=== PATIENT | male | born 1945 | race Caucasian/White ===

== ENCOUNTER 2020-09-24 10:01 | Day surgery (SDC) | payer MEDICARE, OTHER, SELFPAY ==
--- NOTE | 2020-09-23 16:39 | PCM.HP.BLA ---
History and Physical Date of Admission: 09/24/20 HISTORY AND PHYSICAL ? Austyn Paris 1945 ? ? REFERRING PHYSICIAN: Esau Pereyra MD ? CHIEF COMPLAINT: Consult (Consult Port placemnet) ? 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 He is referred by his oncologist for placement of portacath for chemotherapy.. Patient has had no central lines placed in the past. He denies history of clavicular/rib/neck fractures. ? ? PAST MEDICAL HISTORY ? HTN (hypertension) ? ? 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 Sleep apnea ? ? Testicular cancer (HCC) 08/2020 ? PAST SURGICAL HISTORY ? CYSTOSCOPY ? ? ? With stent placement ? TOTAL KNEE REPLACEMENT Left 2017 ? ? Current Outpatient Medications ? OLANZapine (ZYPREXA) 5 mg tablet Take 1 tablet by mouth daily at bedtime. As needed for nausea ? rivaroxaban (XARELTO) 15 mg tablet Take 1 tablet by mouth daily with dinner. ? lisinopril (ZESTRIL, PRINIVIL) 10 mg tablet Take 10 mg by mouth once daily. ? ? ALLERGIES: Patient has no known allergies. ? PERSONAL HISTORY: Social History Tobacco Use ? Smoking status: Never Smoker ? Smokeless tobacco: Never Used Substance Use Topics ? Alcohol use: Yes ? ? Comment: 2 beers in the last 3 months ? Drug use: Never ? FAMILY HISTORY ? other (bladder cancer) Mother ? ? Anesthesia Problems No Family History ? ? ? REVIEW OF SYSTEMS: General - denies fevers, denies anorexia, denies weight loss Cardiovascular - denies chest pain, denies history of OR Pulmonary - denies shortness of breath, denies coughing up blood Gastrointestinal - denies abdominal pain, denies hematemesis, denies blood in stools Neurological - denies seizures, denies chronic numbness/weakness of extremities Genitourinary - denies burning with urination, notes darkened urine Hematological - will be starting xarelto after this, denies spontaneous/prolonged bleeding Skin - denies nonhealing skin wounds Musculoskeletal - denies history of bone fractures, had left knee replacement, no new muscle/bone pain Endocrine - denies diabetes, no thyroid problems Psychological ? denies hallucinations ? ? PHYSICAL EXAMINATION: General: The patient is 75 year old male, well nourished, well hydrated in no acute distress. The patient is oriented to time, place, and person. VITALS: Pulse 93, temperature 36.6 ?C (97.9 ?F), height 180.3 cm (5' 11), weight 98.5 kg (217 lb 3.2 oz), SpO2 95 %. Body mass index is 30.29 kg/m?. ? Head ? Normocephalic. EOM intact with sclera clear and no icterus noted. Mouth with mucus membranes moist. Neck - supple with no jugular venous distention noted. Trachea is midline. Lungs ? clear to auscultation. Normal breath sounds. No rales/rhonchi/wheezing noted. No labored breathing noted, such as retractions. No cough heard. Heart ? normal S1 and S2 auscultated. No rubs/clicks/murmurs noted. Regular rate. Abdomen ? soft and benign. Normal bowel sounds. No abdominal bruits noted. Difficult to determine if any masses or organomegaly due to body habitus. Extremities ? no calf tenderness noted. No pitting edema noted. Skin ? normal skin integrity. Neurological ? gait normal, no focal deficits noted. Psych ? calm and appropriate ? ? IMPRESSION: metastatic seminoma, need for portacath for chemotherapy ? PLAN: I have discussed the above with the patient. I have offered placement of portacath, patient prefers left sided. I have explained the procedure to the patient. I have counseled the patient as to the risks of the procedure, including but not limited to: infection, bleeding, injury to any blood vessels/nerves, injury to lungs (such as pneumothorax or hemothorax and need for chest tube), not having any access, nonfunctioning of port due to thrombosis, infection of port, thromboses of vasculature, migration of the port, complications of anesthesia, etc. ? the patient understands. The patient was offered a surgery/procedure. The provider and patient have discussed in detail the risk of exposure to and/or potential harm posed by the COVID-19 virus with having a surgery/procedure at this time versus the risk of delaying the surgery/procedure. It is not possible to know either the risk of delaying the surgery or procedure or chance of getting an infection with perfect accuracy, but a joint decision was made between the patient and the provider to proceed at this time with the scheduled surgery/procedure. The patient wishes to proceed. I have answered all questions to the patient?s satisfaction and the patient has no further questions. ? ? ? Pily Francois MD
[2020-09-24] VITALS (7 sets, daily range): BP systolic 114–127; BP diastolic 76–89; PULSE 72–77; RESP 16; TEMP 36.6–37.2; O2SAT 93–100; BMI 30.2
[2020-09-24] MEDS: Lactated Ringers 1,000 ML 75 ML IV (10:34)
[2020-09-24] MEDS: Lidocaine 1% /Epi 1:100 (20ml) 20 ML Vial (11:46)
--- NOTE | 2020-09-24 12:16 | OP.PCM_ITS ---
Report of Operation Date of Procedure: 09/24/20 Pre-Operative Diagnosis: testicular cancer, need for IV access for chemotherapy Post-Operative Diagnosis: same Surgery/Procedure Performed:: placement of permanent indwelling tunnelled catheter in left subclavian vein with subcutaneous port Description of Surgical Findings:: normal left subclavian anatomy to SVC Type of Anesthesia:: Local MAC Anesthesiologist: Lamberto Ray Specimen's removed: none Estimated Blood Loss (mL): < 5 ml Fluids Replaced: 800 ml RL Description of Procedure: After informed consent was given, the patient was brought to the Operating Room. Appropriate time out protocol was followed. The patient was then placed in the supine position. The patient was then given IV conscious sedation for anesthesia. The patient?s upper chest and neck were then prepped with a surgical skin preparation and sterile surgical drapes were placed. After proper landmarks were ascertained, the skin at the upper left chest area was then infiltrated with 1% xylocaine with epinephrine. A needle trocar was then inserted into the left subclavian vein and there was good aspiration of venous blood. A wire was then threaded into the needle trocar and this was visualized under fluoroscopy to ensure that the wire was in the left subclavian vein. Once this was done, then the needle trocar was removed. A small skin dino was made with an 11 blade knife at the wire entrance site. The dilator with the introducer sheath attached was then placed over the wire into the left subclavian vein via the Seldinger technique and this was visualized under fluoroscopy. The dilator and sheath were in proper position as visualized by fluoroscopy in real time. The wire and dilator were then removed. The catheter was then threaded into the introducer sheath and was positioned with its tip at the junction of the superior vena cava and the right atrium as visualized under fluoroscopy in real time. I personally reviewed all of the above fluoroscopic images and noted that the positions of the wire and catheter were correct so that the next step could be conducted. The catheter was flushed with a heparin saline mixture prior to placement. A subcutaneous pocket was then created caudad to the catheter insertion site. A transverse skin incision was made after the skin and subcutaneous tissues were infiltrated with local anesthetic. Blunt dissection was then used to create a space large enough for placement of the subcutaneous port. Hemostasis was carefully controlled with electrocautery. The port was sutured to the subcutaneous fascia using vicryl suture at three sites. The catheter was then tunneled into the subcutaneous pocket. The excess catheter was transected. The catheter was then attached to the subcutaneous port using floor covering contractor?s guidelines. The port was then placed in the subcutaneous pocket and the sutures were ligated. The subdermal incisional sites were reapproximated with interrupted vicryl suture. The skin was reapproximated with monocryl suture in a subcuticular fashion. Cavilon and steristrips were used for reinforcement of the skin closure and a sterile opsite dressing was applied. Sponge, needle, and instrument count were verified and correct at the time of skin closure. The patient was brought to the Recovery Room in stable condition - Complications none noted - Admit VTE Documentation VTE Present on Admission: Yes VTE Mechan Device Prophylaxis: SCD's
--- NOTE | 2020-09-24 12:27 | PCM.DC.POR ---
Discharge Diet: No Restrictions Discharge Activity: Return to Normal Activity, May not drive while taking narcotic pain medications. Call your doctor if your incision/area has: Continuous Slow Oozing, Foul Smelling Discharge Additional Instructions: Recommended pain control regimen - May take 600 mg ibuprofen (Motrin) and then in 3-4 hours, may take 650 mg acetaminophen (Tylenol), then in 3-4 hours may take 600 mg ibuprofen, then in 3-4 hours may take 650 mg acetaminophen and so on for 2-3 days May take narcotic pain medication for pain that is not controlled by above and at night for comfort through the night Leave dressings in place May get dressings wet in shower - do not scrub in the area and pat dry Do not soak - no tub baths/swimming You may have bleeding at the dressing sites. If small amounts and not seeping through the dressing, do not worry - leave dressing in place. If starting to seep through the dressing, you may remove the dressing and take a clean wash clothe and apply direct pressure to the area for at least an hour and then apply a new clean bandaid at the site. If it still has not stopped bleeding, please call the office during the day or the [facility] winding lathe operator at after hours and ask for Dr. Francois Allergies/Adverse Reactions: Allergies No Known Allergies Allergy (Verified 09/19/20 15:03) Medications to take at Discharge Cephalexin [Keflex] 500 mg PO Q8 09/19/20 Lisinopril/Hydrochlorothiazide [Lisinopril-Hctz 20-12.5 mg Tab] 1 ea PO DAILY 09/19/20 Primary Care Physician: Alistair Pelaez MD [Primary Care Provider] - Test Results: Test results from this visit will be discussed in further detail at your follow-up appointment, if applicable.
--- NOTE | 2020-09-24 12:30 | RAD_ITS ---
STUDY: X-RAY CHEST REASON FOR EXAM: Male, 75 years old. check line TECHNIQUE: Single AP portable view of the chest. COMPARISON: None. FINDINGS: Left subclavian chest port with tip the catheter overlying the distal superior vena cava. No pneumothorax. The lungs are clear and expanded. There is no demonstrated pleural abnormality. Normal size heart. Normal mediastinum and colt. Normal visualized pulmonary arteries. Normal visualized aortic arch and descending thoracic aorta. Normal visualized thoracic spine. Normal visualized ribs, clavicles, and shoulders. There is no demonstrated abnormality of the visualized soft tissue structures of the upper abdomen. RAD/CXR for Line Placement IMPRESSION: 1. Left subclavian chest port with tip the catheter overlying the distal superior vena cava and no pneumothorax. 2. No active disease. Electronically Signed: Willian Sahu MD at 13:02 EST Tel , Service support ,
== END 2020-09-24 13:29 | disposition home or self-care (01) ==
LOC: SDC 10:02 → AC 10:03
PROVIDERS: Referring Provider Surgery; Visit Provider Surgery
PROC: (CPT 36561; principal; 2020-09-24 11:15)
DX: Z45.2 Encounter for adjustment and management of vascular access device (principal); C62.11 Malignant neoplasm of descended right testis; I10 Essential (primary) hypertension; Z20.822 Contact with and (suspected) exposure to COVID-19; G47.30 Sleep apnea, unspecified; Z79.01 Long term (current) use of anticoagulants; Z79.899 Other long term (current) drug therapy; Z96.652 Presence of left artificial knee joint
CPT/HCPCS: 00532; 36561; 71045; 77001; 87426; C9803; J7050; J7120; C1788

== ENCOUNTER → 2020-11-08 | Outpatient (CLI) | payer MEDICARE, OTHER, SELFPAY ==
[2020-09-24 10:24] VITALS: BMI 30.2
[2020-11-08 14:22] LABS: International Normalized Ratio 1.2; Prothrombin Time (Protime)PT. 14.4 SECONDS (11.7-14.9)
== END | disposition home or self-care (01) ==
LOC: LABSPEC 14:06
PROVIDERS: Referring Provider Internal Medicine Hematology & Oncology; Visit Provider Internal Medicine Hematology & Oncology
DX: C62.11 Malignant neoplasm of descended right testis (principal); Z79.01 Long term (current) use of anticoagulants
CPT/HCPCS: 85610

== ENCOUNTER → 2020-12-12 | Outpatient (CLI) | payer MEDICARE, OTHER, SELFPAY ==
[2020-09-24 10:24] VITALS: BMI 30.2
[2020-12-12 10:23] LABS: International Normalized Ratio 2.9; Prothrombin Time (Protime)PT. 29.8 SECONDS (11.7-14.9)
== END | disposition home or self-care (01) ==
LOC: LABSPEC 10:03
PROVIDERS: Referring Provider Internal Medicine Hematology & Oncology; Visit Provider Internal Medicine Hematology & Oncology
DX: Z29.9 Encounter for prophylactic measures, unspecified (principal); Z79.01 Long term (current) use of anticoagulants
CPT/HCPCS: 85610

== ENCOUNTER → 2020-12-17 11:00 | Outpatient (CLI) | payer MEDICARE, OTHER, SELFPAY ==
[2020-09-24 10:24] VITALS: BMI 30.2
[2020-12-17 11:10] VITALS: BP 107/74; PULSE 88; RESP 16; TEMP 35.9; O2SAT 99; BMI 28.5
[2020-12-17] MEDS: Acetaminophen 325 MG Tablet 650 MG PO (11:18)
[2020-12-17 11:43] VITALS: BP 111/68; PULSE 77; RESP 16; TEMP 35.9; O2SAT 98
[2020-12-17 12:50] VITALS: BP 106/65; PULSE 80; RESP 16; TEMP 35.8; O2SAT 100
[2020-12-17 13:43] VITALS: BP 105/69; PULSE 76; RESP 16; TEMP 36.6; O2SAT 98
[2020-12-17] MEDS: 0.9% NaCl Peripheral Flush Adult/Peds IV (13:58)
== END ==
PROVIDERS: Referring Provider Internal Medicine Hematology & Oncology; Visit Provider Internal Medicine Hematology & Oncology
DX: Z51.89 Encounter for other specified aftercare (principal); D64.9 Anemia, unspecified; Z79.899 Other long term (current) drug therapy
CPT/HCPCS: 36430; 86850; 86900; 86901; 86920; 86922; J7040; P9040; A4216